=== PATIENT | male | born 1950 | race Caucasian/White ===

== ENCOUNTER 2020-10-15 18:25 | Emergency (ER) | payer OTHER ==
[~2020-10-15] VITALS: Ht 188 cm; Wt 147.4 kg
[~2020-10-15 18:25] MED LIST: HYDCHL25; OMEP20ER
[2020-10-15 19:08] LABS: BASOPHILS ABSOLUTE AUTO 0.04 K/mm3 (0.00-0.23); BASOPHILS PERCENT AUTO 0 % (0-2); EOSINOPHILS ABSOLUTE AUTO 0.15 K/mm3 (0.00-0.68); EOSINOPHILS PERCENT AUTO 1 % (0-6); Hematocrit 45.5 % (37.0-53.0); Hemoglobin 14.5 g/dL (13.5-17.5); IMMATURE GRAN ABSOLUTE AUTO 0.04 K/mm3 (0.00-0.10); IMMATURE GRAN PERCENT AUTO 0 % (0-1); LYMPHOCYTES ABSOLUTE AUTO 2.76 K/mm3 (0.84-5.20); LYMPHOCYTES PERCENT AUTO 24 % (21-46); MONOCYTES PERCENT AUTO 4 % (4-13); Mean Corpuscular HGB 27.3 pg (26.0-34.0); Mean Corpuscular HGB Conc 31.9 g/dL (31.5-36.5); Mean Corpuscular Volume 86 fL (80-100); Mean Platelet Volume 9.6 fL (9.1-12.4); NEUTROPHILS ABSOLUTE AUTO 7.91 K/mm3 (1.96-9.15); NEUTROPHILS PERCENT AUTO 69 % (41-73); Platelet Count 224 K/mm3 (150-400); RDW Coefficient Variation 14.6 % (11.7-14.2); RDW Standard Deviation 46.1 fL (35.1-46.3); Red Blood Cell Count 5.31 M/mm3 (4.30-5.90)
[2020-10-15] MEDS ORDERED: ALBU90OI INH (19:12)
[2020-10-15] MEDS ORDERED: FURO40 PO (19:13)
[2020-10-15] MEDS ORDERED: ATOR10 PO (19:13)
[2020-10-15] MEDS ORDERED: HYDHCL25 PO (19:14)
[2020-10-15] MEDS ORDERED: HYDCHL25 PO (19:14)
[2020-10-15] MEDS ORDERED: MELO7.5 PO (19:15)
[2020-10-15] MEDS ORDERED: OMEP20ER PO (19:15)
[2020-10-15] MEDS ORDERED: MELA3 PO (19:15)
[2020-10-15] MEDS ORDERED: LAMO100 PO (19:15)
[2020-10-15] MEDS ORDERED: LORA10ER PO (19:15)
[2020-10-15] MEDS ORDERED: POTA10T PO (19:16)
[2020-10-15] MEDS ORDERED: PRAZ2 PO (19:16)
[2020-10-15] MEDS ORDERED: TRAZ100 PO (19:17)
[2020-10-15] MEDS ORDERED: SERT100 PO (19:17)
[2020-10-15] MEDS ORDERED: Triamcinolone A15 G3 TOP (19:18)
[2020-10-15 19:33] LABS: Alanine Aminotransfer (ALT/SGP 36 U/L (12-78); Albumin, Blood 3.4 g/dL (3.4-5.0); Albumin/Globulin Ratio 0.9 (0.8-1.8); Alk Phos 107 U/L (50-136); Anion Gap 6 mmol/L (6-16); Aspartate Aminotrans (AST/SGOT 24 U/L (12-37); Bilirubin, Total 0.5 mg/dL (0.1-1.0); Blood Urea Nitrogen 21 mg/dL (8-24); Bun/Creatinine Ratio 16.3 (12.0-20.0); CO2, Blood 31 mmol/L (21-32); Chloride, Blood 105 mmol/L (98-108); Creatinine, Blood 1.29 mg/dL (0.60-1.20); Globulin, Blood 3.6 g/dL (2.2-4.0); Glomerular Filtration Rate 55 (60-); Glucose, Blood 145 mg/dL (70-99); Potassium, Blood 3.6 mmol/L (3.5-5.5); Sodium, Blood 142 mmol/L (136-145); Troponin I <0.015 ng/mL (0.000-0.040)
== END 2020-10-15 21:33 | disposition home or self-care (01) ==
LOC: ER 18:25
PROVIDERS: Emergency Medicine
DX: S82.61XA Displaced fracture of lateral malleolus of right fibula, initial encounter for closed fracture (principal); W18.39XA Other fall on same level, initial encounter; M54.9 Dorsalgia, unspecified; M47.814 Spondylosis without myelopathy or radiculopathy, thoracic region
CPT/HCPCS: 29515; 72040; 72070; 72100; 73590; 73630; 80053; 84484; 85025; 93005; 93010; 99284-25

== ENCOUNTER 2020-10-22 19:12 | Emergency (ER) | payer OTHER ==
[~2020-10-22] VITALS: Ht 188 cm; Wt 147.4 kg
[~2020-10-22 19:12] MED LIST changes: +ALBU90OI INH; +ATOR10 PO; +FURO40 PO; +HYDCHL25 PO; +HYDHCL25 PO; +LAMO100 PO; +LORA10ER PO; +MELA3 PO; +MELO7.5 PO; +OMEP20ER PO; +POTA10T PO; +PRAZ2 PO; +SERT100 PO; +TRAZ100 PO; +Triamcinolone A15 G3 TOP
== END 2020-10-22 20:24 | disposition home or self-care (01) ==
LOC: ER 19:12
DX: S82.831D Other fracture of upper and lower end of right fibula, subsequent encounter for closed fracture with routine healing (principal); J44.9 Chronic obstructive pulmonary disease, unspecified; E78.5 Hyperlipidemia, unspecified; I10 Essential (primary) hypertension; Z88.0 Allergy status to penicillin; Z88.8 Allergy status to other drugs, medicaments and biological substances; Z79.899 Other long term (current) drug therapy; X58.XXXD Exposure to other specified factors, subsequent encounter
CPT/HCPCS: 29515; 73590; 99283-25

== ENCOUNTER 2022-08-16 18:07 | Emergency (ER) | payer OTHER ==
[~2022-08-16] VITALS: Ht 188 cm; Wt 145.2 kg
[~2022-08-16 18:07] MED LIST changes: +LEVFLO500 PO; +Percocet 5-3251 EACH PO
[2022-08-16] MEDS ORDERED: ALLERCLEAR10 MG PO (20:25)
[2022-08-16] MEDS ORDERED: EPIPEN0.3 MG/0.3 IM (20:25)
[2022-08-16] MEDS ORDERED: Prednisone50 MG PO (20:25)
[2022-08-16 20:42] VITALS: BP 176/108
== END 2022-08-16 21:16 | disposition home or self-care (01) ==
LOC: ER 18:07
DX: L23.9 Allergic contact dermatitis, unspecified cause (principal); J44.9 Chronic obstructive pulmonary disease, unspecified; I10 Essential (primary) hypertension; E66.9 Obesity, unspecified; Z88.0 Allergy status to penicillin; Z88.8 Allergy status to other drugs, medicaments and biological substances; Z79.899 Other long term (current) drug therapy; Z87.891 Personal history of nicotine dependence
CPT/HCPCS: 96361; 96374; 96375; 99284-25; A9270; J2930; J7030

== ENCOUNTER 2022-08-27 13:09 | Emergency (ER) | payer OTHER ==
[~2022-08-27] VITALS: Ht 188 cm; Wt 154.2 kg
[~2022-08-27 13:09] MED LIST changes: +ALLERCLEAR10 MG PO; +EPIPEN0.3 MG/0.3 IM; +Prednisone50 MG PO
[2022-08-27 13:50] LABS: BASOPHILS ABSOLUTE AUTO 0.08 K/mm3 (0.00-0.23); BASOPHILS PERCENT AUTO 1 % (0-2); EOSINOPHILS PERCENT AUTO 4 % (0-6); Hematocrit 44.2 % (37.0-53.0); Hemoglobin 14.5 g/dL (13.5-17.5); IMMATURE GRAN ABSOLUTE AUTO 0.11 K/mm3 (0.00-0.10); IMMATURE GRAN PERCENT AUTO 1 % (0-1); LYMPHOCYTES ABSOLUTE AUTO 2.12 K/mm3 (0.84-5.20); LYMPHOCYTES PERCENT AUTO 18 % (21-46); MONOCYTES ABSOLUTE AUTO 0.82 K/mm3 (0.16-1.47); MONOCYTES PERCENT AUTO 7 % (4-13); Mean Corpuscular HGB 27.6 pg (26.0-34.0); Mean Corpuscular HGB Conc 32.8 g/dL (31.5-36.5); Mean Corpuscular Volume 84 fL (80-100); Mean Platelet Volume 8.9 fL (9.1-12.4); NEUTROPHILS ABSOLUTE AUTO 7.96 K/mm3 (1.96-9.15); NEUTROPHILS PERCENT AUTO 69 % (41-73); Platelet Count 218 K/mm3 (150-400); RDW Coefficient Variation 15.2 % (11.7-14.2); RDW Standard Deviation 46.4 fL (35.1-46.3); Red Blood Cell Count 5.26 M/mm3 (4.30-5.90); White Blood Cell Count 11.59 K/mm3 (4.00-11.30)
[2022-08-27] MEDS ORDERED: ACET500 PO (14:05)
[2022-08-27] MEDS ORDERED: DICLOFENAC SOD100 GM TOP (14:06)
[2022-08-27] MEDS ORDERED: B-121000 MC4 PO (14:06)
[2022-08-27] MEDS ORDERED: DOXE10 PO (14:07)
[2022-08-27] MEDS ORDERED: ERYT.5TO RIGHTEYE (14:08)
[2022-08-27] MEDS ORDERED: FLUTICASONE-SA1 EAC9 INH (14:08)
[2022-08-27 14:16] LABS: Albumin, Blood 3.1 g/dL (3.4-5.0); Albumin/Globulin Ratio 0.8 (0.8-1.8); Bilirubin, Total 0.5 mg/dL (0.1-1.0); Bun/Creatinine Ratio 12.7 (12.0-20.0); Calcium, Blood 8.5 mg/dL (8.5-10.1); Creatinine, Blood 1.26 mg/dL (0.60-1.20); Globulin, Blood 3.9 g/dL (2.2-4.0); Potassium, Blood 4.4 mmol/L (3.5-5.5)
[2022-08-27 16:13] LABS: Source, Urine Voided
[2022-08-27 16:32] LABS: Appearance, Urine Clear (Clear); Bilirubin, Urine Neg (Neg); Blood, Urine Neg (Neg); Color, Urine Yellow (P-Yellow); Glucose Qualitative, Urine Neg (Neg); Ketones, Urine Neg (Neg); Leukocyte Esterase, Urine Neg (Neg); Nitrite, Urine Neg (Neg); Protein, Urine Neg (Neg); Specific Gravity, Urine 1.015 (1.003-1.022); Urobilinogen, Urine NORM (Normal)
[2022-08-27 18:30] VITALS: BP 154/74
== END 2022-08-27 18:50 | disposition home or self-care (01) ==
LOC: ER 13:09
PROVIDERS: Emergency Medicine
DX: G45.9 Transient cerebral ischemic attack, unspecified (principal); J44.9 Chronic obstructive pulmonary disease, unspecified; E78.5 Hyperlipidemia, unspecified; I10 Essential (primary) hypertension; F41.9 Anxiety disorder, unspecified; F43.10 Post-traumatic stress disorder, unspecified; Z88.0 Allergy status to penicillin; Z88.8 Allergy status to other drugs, medicaments and biological substances; Z79.899 Other long term (current) drug therapy; Z87.891 Personal history of nicotine dependence; Z95.828 Presence of other vascular implants and grafts
CPT/HCPCS: 70450; 80053; 81003; 85025; 93005; 93010; 99285-25

== ENCOUNTER 2022-09-03 12:55 | Observation (INO) | payer OTHER ==
[~2022-09-03 12:55] MED LIST changes: +ACET500 PO; +B-121000 MC4 PO; +DICLOFENAC SOD100 GM TOP; +DOXE10 PO; +ERYT.5TO RIGHTEYE; +FLUTICASONE-SA1 EAC9 INH
[2022-09-03 14:12] LABS: Source, Urine Clean Catch
[2022-09-03 14:28] LABS: BASOPHILS ABSOLUTE AUTO 0.07 K/mm3 (0.00-0.23); BASOPHILS PERCENT AUTO 1 % (0-2); EOSINOPHILS ABSOLUTE AUTO 0.52 K/mm3 (0.00-0.68); EOSINOPHILS PERCENT AUTO 6 % (0-6); Hematocrit 45.8 % (37.0-53.0); Hemoglobin 14.7 g/dL (13.5-17.5); IMMATURE GRAN ABSOLUTE AUTO 0.03 K/mm3 (0.00-0.10); IMMATURE GRAN PERCENT AUTO 0 % (0-1); LYMPHOCYTES ABSOLUTE AUTO 2.29 K/mm3 (0.84-5.20); LYMPHOCYTES PERCENT AUTO 27 % (21-46); MONOCYTES ABSOLUTE AUTO 0.82 K/mm3 (0.16-1.47); MONOCYTES PERCENT AUTO 10 % (4-13); Mean Corpuscular HGB 27.6 pg (26.0-34.0); Mean Corpuscular HGB Conc 32.1 g/dL (31.5-36.5); Mean Corpuscular Volume 86 fL (80-100); NEUTROPHILS ABSOLUTE AUTO 4.78 K/mm3 (1.96-9.15); NEUTROPHILS PERCENT AUTO 56 % (41-73); Platelet Count 211 K/mm3 (150-400); RDW Coefficient Variation 15.2 % (11.7-14.2); RDW Standard Deviation 48.2 fL (35.1-46.3); Red Blood Cell Count 5.32 M/mm3 (4.30-5.90); White Blood Cell Count 8.51 K/mm3 (4.00-11.30)
[2022-09-03 14:40] LABS: Appearance, Urine Clear (Clear); Bilirubin, Urine Neg (Neg); Blood, Urine Neg (Neg); Color, Urine Yellow (P-Yellow); Glucose Qualitative, Urine Neg (Neg); Ketones, Urine Neg (Neg); Leukocyte Esterase, Urine Neg (Neg); Nitrite, Urine Neg (Neg); Protein, Urine Neg (Neg); Specific Gravity, Urine 1.015 (1.003-1.022); Urobilinogen, Urine NORM (Normal)
[2022-09-03 14:48] LABS: Magnesium, Blood 2.2 mg/dL (1.6-2.4)
[2022-09-03 14:58] LABS: Albumin, Blood 3.2 g/dL (3.4-5.0); Albumin/Globulin Ratio 0.8 (0.8-1.8); Bilirubin, Total 0.2 mg/dL (0.1-1.0); Bun/Creatinine Ratio 16.5 (12.0-20.0); Calcium, Blood 8.8 mg/dL (8.5-10.1); Creatinine, Blood 1.21 mg/dL (0.60-1.20); Potassium, Blood 3.3 mmol/L (3.5-5.5); Prolactin 8.3 ng/mL (2.5-17.4); Total Protein, Blood 7.2 g/dL (6.4-8.2)
[2022-09-03 15:19] LABS: Bicarbonate Venous 29.6 mmol/L (24.0-30.0); PCO2 Venous 58.6 mmHg (38-42); pH Blood Venous 7.36 (7.34-7.37)
--- NOTE | 2022-09-03 19:34 | NUR ---
PT CHART REVIEWED FOR ADMISSION
[2022-09-03 19:49] VITALS: BP 199/93
[2022-09-03 22:30] VITALS: BP 172/84
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
[2022-09-04 04:38] VITALS: BP 145/85
[2022-09-04 06:28] LABS: Bun/Creatinine Ratio 14.3 (12.0-20.0); Calcium, Blood 8.5 mg/dL (8.5-10.1); Creatinine, Blood 1.19 mg/dL (0.60-1.20); Potassium, Blood 3.5 mmol/L (3.5-5.5)
[2022-09-04 07:25] VITALS: BP 146/76
--- NOTE | 2022-09-04 07:49 | NUR ---
pt laying in bed on his side, a/ox4, pleasant and cooperative with care, follows commands well, reports pain to back and bottom because of the bed, had a rough night, lungs are clear, dim in bases, on r/a, denies cough, hrr, tele in place running sr per monitor, see strip, trace edema noted to b/l le, but could be body habitus, ppp+2, cap refill <3sec, vs stable, afebrile, iv site to lac infusing ns at 100mls/hr, site clear, btx4, abd large soft nontender, voids via urinal, skin c/w/d, maew, states he can't feel his feet due to nueropathy and is nonambulatory, but can get to a chair at baseline, barbara, call light in reach.
[2022-09-04] MEDS ORDERED: ASPI81CH PO (12:15)
[2022-09-04] MEDS ORDERED: LOSA25 PO (12:26)
--- NOTE | 2022-09-04 13:07 | NUR ---
Pt is being discharged to home, daughter will be home when he gets there, [facility] care worker, iv removed intact, went over instructions for him, he verbalized understanding, new medication was [facility] for enough to get through the weekend and also faxed to the [facility] to fill the remainder of the script. will leave via wheelhchair when transport arrives with all his belongings.
--- NOTE | 2022-09-04 13:44 | NUR ---
Pt left via wheelchair with all belongings with transport.
== END 2022-09-04 13:43 | disposition home or self-care (01) ==
LOC: ER 12:55 → MEDS 12:56
PROVIDERS: Student in an Organized Health Care Education/Training Program; ADMIT Nurse Practitioner Acute Care
DX: R41.82 Altered mental status, unspecified (principal); R09.02 Hypoxemia; G47.33 Obstructive sleep apnea (adult) (pediatric); E87.6 Hypokalemia; I16.0 Hypertensive urgency; I10 Essential (primary) hypertension; E78.5 Hyperlipidemia, unspecified; F43.10 Post-traumatic stress disorder, unspecified; F41.9 Anxiety disorder, unspecified; F31.9 Bipolar disorder, unspecified; E66.01 Morbid (severe) obesity due to excess calories; G62.9 Polyneuropathy, unspecified; Z88.0 Allergy status to penicillin; Z88.8 Allergy status to other drugs, medicaments and biological substances; Z87.891 Personal history of nicotine dependence; Z68.43 Body mass index [BMI] 50.0-59.9, adult; J44.9 Chronic obstructive pulmonary disease, unspecified
CPT/HCPCS: 36415; 71046; 80048; 80053; 80175; 81003; 82803; 83735; 83880; 84145; 84146; 84484; 85025; 93005; 93010; 93880; 94640; 94660; 94664; 94762; 96361; 96372; 96374; 96376; 99285-25; A9270; G0378; J0360; J1650; J7030

== ENCOUNTER 2024-04-18 21:45 | Emergency (ER) | payer OTHER ==
[~2024-04-18] VITALS: Ht 188 cm; Wt 158.8 kg
[~2024-04-18 21:45] MED LIST changes: +ASPI81CH PO; +LOSA25 PO
[2024-04-19 02:10] VITALS: BP 155/61
== END 2024-04-19 02:36 | disposition home or self-care (01) ==
LOC: ER 21:45
DX: M25.551 Pain in right hip (principal); W18.30XA Fall on same level, unspecified, initial encounter; I10 Essential (primary) hypertension; E78.5 Hyperlipidemia, unspecified; J44.9 Chronic obstructive pulmonary disease, unspecified; Z88.0 Allergy status to penicillin; Z88.9 Allergy status to unspecified drugs, medicaments and biological substances; Z88.8 Allergy status to other drugs, medicaments and biological substances; Z79.51 Long term (current) use of inhaled steroids; Z79.899 Other long term (current) drug therapy; Z79.64 Long term (current) use of myelosuppressive agent
CPT/HCPCS: 73502; 99283-25

== ENCOUNTER 2024-05-04 11:53 | Emergency (ER) | payer OTHER ==
[~2024-05-04] VITALS: Ht 188 cm; Wt 158.8 kg
[2024-05-04] MEDS ORDERED: Morphine Sulfate 4 MG/1 ML Injection IV ONE (12:20)
[2024-05-04] MEDS ORDERED: Methocarbamol 500 MG Tab PO ONE ×2 (12:20→19:40)
[2024-05-04] MEDS ORDERED: Ketorolac Tromethamine 30mg Vial IV ONE ×2 (12:20→19:40)
[2024-05-04 14:00] VITALS: BP 116/105
[2024-05-04] MEDS ORDERED: Robaxin750 MG PO (14:27)
[2024-05-04] MEDS ORDERED: Morphine Sulfat15 MG PO (14:27)
[2024-05-04] MEDS ORDERED: IBUP600 PO (14:27)
== END 2024-05-04 20:27 | disposition home or self-care (01) ==
LOC: ER 11:53
DX: M25.551 Pain in right hip (principal); J44.9 Chronic obstructive pulmonary disease, unspecified; E78.5 Hyperlipidemia, unspecified; I10 Essential (primary) hypertension; F43.10 Post-traumatic stress disorder, unspecified; K21.9 Gastro-esophageal reflux disease without esophagitis; G47.33 Obstructive sleep apnea (adult) (pediatric); Z96.641 Presence of right artificial hip joint; Z87.891 Personal history of nicotine dependence; Z79.51 Long term (current) use of inhaled steroids; Z79.82 Long term (current) use of aspirin; Z79.899 Other long term (current) drug therapy; Z88.1 Allergy status to other antibiotic agents; Z88.0 Allergy status to penicillin; Z88.8 Allergy status to other drugs, medicaments and biological substances
CPT/HCPCS: 72192; 96374; 96375; 96376; 99284-25; A9270; J1885; J2270

== ENCOUNTER 2024-05-16 13:38 | Inpatient (IN) | payer OTHER ==
[~2024-05-16] VITALS: Ht 188 cm; Wt 181.2 kg
[~2024-05-16 13:38] MED LIST changes: +IBUP600 PO; +Morphine Sulfat15 MG PO; +Robaxin750 MG PO
[2024-05-16 14:50] LABS: BASOPHILS ABSOLUTE AUTO 0.06 K/mm3 (0.00-0.23); BASOPHILS PERCENT AUTO 1 % (0-2); EOSINOPHILS ABSOLUTE AUTO 0.49 K/mm3 (0.00-0.68); EOSINOPHILS PERCENT AUTO 5 % (0-6); Hematocrit 41.3 % (37.0-53.0); IMMATURE GRAN ABSOLUTE AUTO 0.04 K/mm3 (0.00-0.10); IMMATURE GRAN PERCENT AUTO 0 % (0-1); LYMPHOCYTES ABSOLUTE AUTO 2.51 K/mm3 (0.84-5.20); LYMPHOCYTES PERCENT AUTO 26 % (21-46); MONOCYTES ABSOLUTE AUTO 0.86 K/mm3 (0.16-1.47); MONOCYTES PERCENT AUTO 9 % (4-13); Mean Corpuscular HGB 27.5 pg (26.0-34.0); Mean Corpuscular HGB Conc 31.5 g/dL (31.5-36.5); Mean Corpuscular Volume 87 fL (80-100); Mean Platelet Volume 9.8 fL (9.1-12.4); NEUTROPHILS ABSOLUTE AUTO 5.87 K/mm3 (1.96-9.15); NEUTROPHILS PERCENT AUTO 60 % (41-73); Platelet Count 256 K/mm3 (150-400); RDW Coefficient Variation 15.5 % (11.7-14.2); RDW Standard Deviation 49.6 fL (35.1-46.3); Red Blood Cell Count 4.73 M/mm3 (4.30-5.90); White Blood Cell Count 9.83 K/mm3 (4.00-11.30)
[2024-05-16 15:08] LABS: Albumin, Blood 3.1 g/dL (3.4-5.0); Albumin/Globulin Ratio 0.8 (0.8-1.8); Bilirubin, Total 0.6 mg/dL (0.1-1.0); Bun/Creatinine Ratio 17.9 (12.0-20.0); Calcium, Blood 8.8 mg/dL (8.5-10.1); Creatinine, Blood 1.23 mg/dL (0.60-1.20); Potassium, Blood 4.2 mmol/L (3.5-5.5); Total Protein, Blood 7.1 g/dL (6.4-8.2)
[2024-05-16] MEDS ORDERED: Albuterol 2.5 MG/3 ML VIAL INH SCH (15:55)
[2024-05-16] MEDS ORDERED: MethylPREDNISolone Sod Succ 125 MG Vial IV ONE (15:55)
[2024-05-16] MEDS ORDERED: Clindamycin 600mg in D5W 50 ML IV ONE (15:55)
[2024-05-16] MEDS ORDERED: Furosemide 10 MG/ML 4ML Vial IV ONE (16:00)
[2024-05-16] MEDS ORDERED: Acetaminophen 325 MG TABLET PO PRN (16:55)
[2024-05-16] MEDS ORDERED: Naloxone HCl 0.4MG / ML 1ML Vial IV PRN (16:55)
[2024-05-16] MEDS ORDERED: Morphine Sulfate IR 15 MG Tab PO PRN (16:55)
[2024-05-16] MEDS ORDERED: Ipratropium/Albuterol SulF 2.5-0.5MG/3 ML Amp INH SCH (17:00)
[2024-05-16] MEDS ORDERED: FLU VACC TS2024-25(6MOS UP)/PF 45 MCG/0.5 ML SYRINGE IM SCH (17:00)
[2024-05-16 17:04] LABS: Influenza A, PCR NEGATIVE (NEGATIVE); Influenza B, PCR NEGATIVE (NEGATIVE); Resp Syncytial Virus, PCR NEGATIVE (NEGATIVE); SARS-Cov-2 (COVID-19) PCR, MMC NEGATIVE (NEGATIVE)
[2024-05-16 17:54] LABS: Base Excess Venous 2.9 mmol/L; Bicarbonate Venous 27.2 mmol/L (24.0-30.0); PCO2 Venous 34.2 mmHg (38-42); pH Blood Venous 7.49 (7.34-7.37)
[2024-05-16] MEDS ORDERED: CeFAZolin Sodium 1,000 MG in NS 50 ML IV SCH (18:00)
[2024-05-16] MEDS ORDERED: Furosemide 10 MG/ML 4ML Vial IV SCH (18:00)
[2024-05-16 20:28] VITALS: BP 173/83
[2024-05-16] MEDS ORDERED: Lactobacil 2-S.Thermo-Bifido 1 1 Cap PO SCH (21:00)
[2024-05-16] MEDS ORDERED: Docusate Sodium 100 MG Cap PO SCH (21:00)
[2024-05-16] MEDS ORDERED: GuaiFENesin 600 MG TabCR PO SCH (21:00)
[2024-05-17] MEDS ORDERED: ATOR40TA PO (01:28)
[2024-05-17] MEDS ORDERED: Vitamin D1000 UNI1 PO (01:30)
[2024-05-17] MEDS ORDERED: EZET10 PO (01:42)
[2024-05-17] MEDS ORDERED: Flonase 0.05% N16 GM (01:43)
[2024-05-17] MEDS ORDERED: FOLI1 PO (01:44)
[2024-05-17] MEDS ORDERED: LORA10ER PO (01:48)
[2024-05-17] MEDS ORDERED: Robaxin750 MG PO (01:50)
[2024-05-17] MEDS ORDERED: MORP15ER PO (01:51)
[2024-05-17] MEDS ORDERED: MORP30 PO (01:53)
[2024-05-17] MEDS ORDERED: NS 1,000 ML BAG IR SCH (02:35)
[2024-05-17] MEDS ORDERED: NS 250 ML IV PRN (02:50)
[2024-05-17 02:57] VITALS: BP 175/75
--- NOTE | 2024-05-17 04:42 | NUR ---
2015: REC'D PT FROM ER, ORIENTED TO ROOM AND CALL LIGHT SYSTEM. [facility] D/T HEARING A POOPING SOUND WHILE ROLLING OVER IN BED. HX: R HIP REPLACEMENT X2. PCP ADVISED TO GO TO ER FOR BLE REDNESS AND EDEMA. AAOX4. BEDREST IS BASELINE, USES AN ELECTRIC WC FOR APPTS. HE DOES HAVE HOME HEALTH FOR 3 HRS DAILY. 2L O2 VIA NC WHICH IS HIS BASELINE. HOME CPAP IN ROOM HOWEVER PT C/O "TOO MUCH AIR GOING THROUGH CPAP," KEEP NC ON. INCT. OF URINE AND BM. X2BM IN ER. MALE PERWICK IN PLACE FOR POLYURIA. NO ACUTE NEEDS OVERNIGHT.
[2024-05-17 05:20] LABS: BASOPHILS ABSOLUTE AUTO 0.03 K/mm3 (0.00-0.23); BASOPHILS PERCENT AUTO 0 % (0-2); EOSINOPHILS PERCENT AUTO 0 % (0-6); Hematocrit 38.4 % (37.0-53.0); Hemoglobin 12.1 g/dL (13.5-17.5); IMMATURE GRAN ABSOLUTE AUTO 0.07 K/mm3 (0.00-0.10); IMMATURE GRAN PERCENT AUTO 1 % (0-1); LYMPHOCYTES ABSOLUTE AUTO 1.74 K/mm3 (0.84-5.20); LYMPHOCYTES PERCENT AUTO 16 % (21-46); MONOCYTES ABSOLUTE AUTO 0.64 K/mm3 (0.16-1.47); MONOCYTES PERCENT AUTO 6 % (4-13); Mean Corpuscular HGB 27.2 pg (26.0-34.0); Mean Corpuscular HGB Conc 31.5 g/dL (31.5-36.5); Mean Corpuscular Volume 86 fL (80-100); Mean Platelet Volume 10.1 fL (9.1-12.4); NEUTROPHILS ABSOLUTE AUTO 8.62 K/mm3 (1.96-9.15); NEUTROPHILS PERCENT AUTO 78 % (41-73); Platelet Count 253 K/mm3 (150-400); RDW Coefficient Variation 15.4 % (11.7-14.2); RDW Standard Deviation 48.3 fL (35.1-46.3); Red Blood Cell Count 4.45 M/mm3 (4.30-5.90)
[2024-05-17 05:49] LABS: Albumin, Blood 2.9 g/dL (3.4-5.0); Albumin/Globulin Ratio 0.7 (0.8-1.8); Bilirubin, Total 0.3 mg/dL (0.1-1.0); Bun/Creatinine Ratio 17.4 (12.0-20.0); Calcium, Blood 8.8 mg/dL (8.5-10.1); Creatinine, Blood 1.32 mg/dL (0.60-1.20); Globulin, Blood 3.9 g/dL (2.2-4.0); Magnesium, Blood 2.2 mg/dL (1.6-2.4); Potassium, Blood 4.3 mmol/L (3.5-5.5); Total Protein, Blood 6.8 g/dL (6.4-8.2)
[2024-05-17 07:35] VITALS: BP 206/96
[2024-05-17] MEDS ORDERED: Enoxaparin 40 MG/0.4 ML SYR SC SCH ×2 (09:00)
[2024-05-17] MEDS ORDERED: PredniSONE 20 MG Tab PO SCH (09:00)
[2024-05-17] MEDS ORDERED: NS 1,000 ML IV SCH (09:40)
[2024-05-17] MEDS ORDERED: N-Acetylcysteine 600 MG CAP PO SCH (10:00)
--- NOTE | 2024-05-17 12:00 | NUR ---
pt laying in bed awake, a/ox4, pleasant and cooperative with care, follows commands well, reports pain, medicated per mar, states he can't stand to transfer to chair at this point, lungs have wheeze, crackles, on 2 liters 02 via n/c, which is baseline, no cough noted, hrr, 4+ edema noted to b/l le, cap refill < 3 sec, vs stable, afebrile, piv to rfa site is clear and patent, btx4, abd flat soft nontender, voids without diff, skin c/w/d, maew, barbara, call light in reach.
[2024-05-17] MEDS ORDERED: Loratadine 10 MG Tab PO PRN (15:50)
[2024-05-17] MEDS ORDERED: HyDROXyzine HCl 25 MG Tab PO PRN (15:55)
[2024-05-17] MEDS ORDERED: Methocarbamol 500 MG Tab PO PRN (15:55)
[2024-05-17 16:00] VITALS: BP 175/131
[2024-05-17] MEDS ORDERED: Azithromycin 250 MG Tab PO SCH (16:00)
[2024-05-17] MEDS ORDERED: Furosemide 10 MG/ML 4ML Vial IV SCH (16:00)
--- NOTE | 2024-05-17 18:35 | NUR ---
pt had a ct, and u/s to rle, otherwise uneventful day, no complaints or acute changes, call light in reach.
[2024-05-17 19:40] VITALS: BP 150/63
[2024-05-17] MEDS ORDERED: Melatonin 3 MG Tab PO SCH (21:00)
[2024-05-17] MEDS ORDERED: LamoTRIgine 100 MG Tab PO SCH (21:00)
[2024-05-17] MEDS ORDERED: Doxepin HCL 10 MG CAP PO SCH (21:00)
[2024-05-17] MEDS ORDERED: GuaiFENesin 600 MG TabCR PO SCH (21:00)
[2024-05-17] MEDS ORDERED: Prazosin HCl 1 MG Cap PO SCH (21:00)
[2024-05-18 05:03] VITALS: BP 136/72
[2024-05-18 05:03] LABS: Hematocrit 38.4 % (37.0-53.0); Hemoglobin 12.3 g/dL (13.5-17.5); Mean Corpuscular Volume 87 fL (80-100); Mean Platelet Volume 9.4 fL (9.1-12.4); Platelet Count 239 K/mm3 (150-400); RDW Coefficient Variation 15.8 % (11.7-14.2); RDW Standard Deviation 50.4 fL (35.1-46.3); White Blood Cell Count 10.17 K/mm3 (4.00-11.30)
[2024-05-18 05:31] LABS: Bun/Creatinine Ratio 19.6 (12.0-20.0); Calcium, Blood 8.6 mg/dL (8.5-10.1); Creatinine, Blood 1.43 mg/dL (0.60-1.20); Potassium, Blood 3.8 mmol/L (3.5-5.5)
--- NOTE | 2024-05-18 05:34 | NUR ---
Shift Summary Pt placed on home CPAP last night and he had many desaturation events with the O2 monitor alarming, SPO2 in the low 80s. RT assessed pt and changed his small mask from home for a larger mask, increased CPAP pressure and turned O2 up to 6L. With these interventions pt still would desat down to mid 80s but not as frequently as before. Pt is on purewick. He did c/o R hip pain, medicated x1 per emar. Pt slept t/o most of the night. He is AOx4, pleasant and cooperative with care.
[2024-05-18 07:13] VITALS: BP 169/87
[2024-05-18] MEDS ORDERED: Omeprazole 20 MG CapCR PO SCH (09:00)
[2024-05-18] MEDS ORDERED: Folic Acid 1 MG TAB PO SCH (09:00)
[2024-05-18] MEDS ORDERED: Cholecalciferol 1000 Unit Tablet (=25MCG) PO SCH (09:00)
[2024-05-18] MEDS ORDERED: Ezetimibe 10 MG Tab PO SCH (09:00)
[2024-05-18] MEDS ORDERED: Cyanocobalamin 500 MCG Tab PO SCH (09:00)
[2024-05-18] MEDS ORDERED: Atorvastatin 40 MG Tab PO SCH (09:00)
[2024-05-18] MEDS ORDERED: Losartan Potassium 25 MG Tab PO SCH (09:00)
[2024-05-18] MEDS ORDERED: Sertraline HCl 100 MG Tab PO SCH (09:00)
[2024-05-18] MEDS ORDERED: GuaiFENesin 600 MG TabCR PO SCH (09:00)
[2024-05-18] MEDS ORDERED: Fluticasone 0.05% Nasal Spray SCH (09:00)
[2024-05-18 15:24] VITALS: BP 153/88
--- NOTE | 2024-05-18 17:13 | NUR ---
PT PLEASANT TODAY. NO BM YET FOR 2 DAYS. LUNGS DIM THROUGH/OUT AND FINE CRACKLES IN BASES.CONTINUES ON 4L O2. SON IN TO VISIT TODAY. NO FURTHER CONCERNS NOTED. BED IN LOW POSITION, CALL LITE IN REACH, CALLS APPROP.
--- NOTE | 2024-05-18 18:16 | NUR ---
TURNED O2 DOWN TO 3L O2. HOLDING 92%.
[2024-05-18 19:12] VITALS: BP 151/71
[2024-05-19 05:17] LABS: Albumin, Blood 3.1 g/dL (3.4-5.0); Anion Gap 5 mmol/L (3-11); Blood Urea Nitrogen 32 mg/dL (8-24); Bun/Creatinine Ratio 23.2 (12.0-20.0); CO2, Blood 31 mmol/L (21-32); Calcium, Blood 8.2 mg/dL (8.5-10.1); Chloride, Blood 101 mmol/L (98-108); Creatinine, Blood 1.38 mg/dL (0.60-1.20); Glomerular Filtration Rate 53 (60-); Glucose, Blood 114 mg/dL (70-99); Phosphorus, Blood 4.1 mg/dL (2.5-4.9); Potassium, Blood 3.4 mmol/L (3.5-5.5); Sodium, Blood 134 mmol/L (136-145)
[2024-05-19 05:21] VITALS: BP 151/72
--- NOTE | 2024-05-19 05:46 | NUR ---
Shift Summary Tonight his CPAP mask was adjusted to be much tighter, he had fewer desaturation events than last night. Medicated x1 for chronic R hip pain. Purewick in place draining voids. Pt on bedrest d.t R hip pain, weakness and obeisity. No BM for 3 days. Pt is AOx4, slept t/o most of the night.
[2024-05-19 08:05] VITALS: BP 143/78
[2024-05-19] MEDS ORDERED: Potassium Chloride 20 MEQ/15 ML UDC PO SCH (10:00)
[2024-05-19 11:32] VITALS: BP 134/74
[2024-05-19 15:32] VITALS: BP 143/69
--- NOTE | 2024-05-19 16:02 | NUR ---
SHIFT SUMMARY PATIENT IN BED THIS SHIFT. REDNESS TO BILAT LEGS RECEEDING INSIDE DEMARKED AREAS, BILAT LEGS ELEVATED MAJORITY OF SHIFT. OXYGEN TITRATED TO 3LITERS NC DURING DAYSHIFT. POTASSIUM REPLACEMENT ADMIN PER APR. NO C/O PAIN. A/O X4. ABLE TO MAKE NEEDS KNOWN. CALL LIGHT IN REACH.
[2024-05-19 20:14] VITALS: BP 136/78
--- NOTE | 2024-05-19 21:54 | NUR ---
ADMIT NOTE 62 YR OLD MALE ADMITTED TO FLOOR FROM THE ED WITH DX OF TRANSIENT AMNESIA. REPORTED INCREASED CONFUSION. BP ELEVATED. ALERT TO QUESTIONS ASKED, ATTENDED BY . ORIENTED TO USE OF CALL LIGHT. BED ALARM ON. CALL LIGHT IN REACH
[2024-05-20 02:20] VITALS: BP 141/78
--- NOTE | 2024-05-20 03:09 | NUR ---
SHIFT SUMM: PT IS A 74 YO FULL CODE WHO WAS ADMITTED FOR ARF. PT HAS CELLULITIS TO THE TOPS OF BOTH BILATERAL SHINS. PT HAS BEEN ENCORAGED TO ELEVATE LEGS UNDER PILLOWS BUT HE SAID ITS TO PAINFUL. PT HAS NOT HAD A BM SINCE 05/16/24 AND BOWEL CARE MEDS HAVE BEEN GIVEN. PT HAS BEEN RELAXING MOST OF THE EVENING IN BED AND ON 4L OF NC WHEN AWAKE AND CPAP AT NIGHT WHILE ASLEEP. PT'S SON VISITED AND WAS AT BEDSIDE AT BEGINNING OF SHIFT. PT ID A DAILY WT AND STRICT I&O'S.PT IS USING A PURE WICK AND IS VERY UNSTEADY AND WEAK WHEN AMBULATING PER SON. PT IS ON CONT PULSE OX AND CALLS TO MAKE NEEDS KNOWN. PT HAD SOME PAIN AND WAS MEDICATED PER EMAR. CALL LIGHT IN REACH
[2024-05-20 07:50] VITALS: BP 125/106
[2024-05-20 09:52] LABS: Calcium, Blood 8.4 mg/dL (8.5-10.1); Creatinine, Blood 1.26 mg/dL (0.60-1.20); Potassium, Blood 3.7 mmol/L (3.5-5.5)
[2024-05-20] MEDS ORDERED: Polyethylene Glycol 3350 17 gm PO SCH (10:00)
[2024-05-20 10:51] VITALS: BP 139/75
[2024-05-20 16:15] VITALS: BP 144/68
--- NOTE | 2024-05-20 18:34 | NUR ---
SHIFT SUMMARY PATIENT ABLE TO GET INTO POWERCHAIR FOR A FEW HOURS THIS SHIFT, ABLE TO SBA SP TRANSFER. TITRATING OXYGEN TO 2 LITERS NC SATING 93%. A/OX4. USING MALE PURWICK FOR STRICT I&O. BILAT REDNESS TO SHINS, RECEEDING WITHIN DEMARKED BORDERS. EATING AND DRINKINING WELL, PILLS WHOLE WITH WATER. HAD BM THIS SHIFT, INCONTINENT. ABLE TO MAKE NEEDS KNOWN. CALL LIGHT IN REACH.
[2024-05-20 20:08] VITALS: BP 143/72
[2024-05-21 03:19] VITALS: BP 145/79
--- NOTE | 2024-05-21 05:02 | NUR ---
SHIFT SUMMARY: PT AOX4 POWERCHAIR AT BASELINE. STAYED IN BED ALL SHIFT. TOLERATING MEDICATIONS WELL. COMPLAINED OF SOME HIP PAIN, MEDICATED PER EMR. PUT ON CPAP TO SLEEP WITH 5L BLEED IN. WHILE THIS RN WAS AT BREAK, BREAK NURSE REPORTED PT WAS DESATTING AND COMING BACK UP REGULARLY, INSTRUCTED TO PLACE PT ON 7L BLEED IN AND PT MAINTAINTED SATS. MASK READJUSTED AND PT WEANED BACK TO 5L WITH NO DESATS THE REST OF THE NIGHT. PT TOLERATED WELL AND IS IN BED SLEEPING, BED IN LOWEST POSITION, CALL LIGHT IN REACH. CONTINUING CARE.
[2024-05-21 06:13] LABS: Anion Gap 7 mmol/L (3-11); Blood Urea Nitrogen 27 mg/dL (8-24); Bun/Creatinine Ratio 21.6 (12.0-20.0); CO2, Blood 31 mmol/L (21-32); Calcium, Blood 8.3 mg/dL (8.5-10.1); Chloride, Blood 101 mmol/L (98-108); Creatinine, Blood 1.25 mg/dL (0.60-1.20); Glomerular Filtration Rate 60 (60-); Glucose, Blood 101 mg/dL (70-99); Magnesium, Blood 2.2 mg/dL (1.6-2.4); Phosphorus, Blood 3.5 mg/dL (2.5-4.9); Potassium, Blood 3.5 mmol/L (3.5-5.5); Sodium, Blood 135 mmol/L (136-145)
[2024-05-21 07:37] VITALS: BP 144/83
[2024-05-21] MEDS ORDERED: GUAI600T33 PO (17:00)
[2024-05-21] MEDS ORDERED: MIRALAX17 GM PO (17:00)
[2024-05-21] MEDS ORDERED: DOCU100 PO (17:00)
[2024-05-21] MEDS ORDERED: CEPH500 PO (17:01)
[2024-05-21] MEDS ORDERED: VISBIOME 112.51 EACH PO (17:01)
--- NOTE | 2024-05-21 17:17 | NUR ---
DISCHARGE MEDICATIONS THIS RN CALLED TO DR. DURAN FOR MEDICATIONS THAT WERE NOT ORDERED AND WERE ON THE PT'S HOME LIST MEDICATIONS. DR. DURAN ORDERED TO CONTINUE PT'S HOME MEDICATIONS/DOSES. MEDICATIONS THAT WERE ORDERED TO CONTINUE ARE: ASA 81 CHEWABLE TABLET, DICLOFENAC SODIUM 3 % GEL, TRAZADONE 100 MG. PT TO CONTINUE HOME DIRECTIONS PER DR. DURAN. THESE MEDICATIONS ARE FOR DISCHARGE WITH THE REST OF DISCHARGE MEDICATIONS.
--- NOTE | 2024-05-21 18:33 | NUR ---
DISCHARGE REVIEWED WITH PT. IV PULLED BY ROGERIO. PT VERBALIZED UNDERSTANDING MEDS AND INST. WHEELED TO DOOR BY TRANSPORT AT 1823
== END 2024-05-21 18:31 | disposition home or self-care (01) | DRG 291 ==
LOC: ER 13:38 → MEDS 16:52 → ERHOLD 16:52 → MEDS 20:05
PROVIDERS: Emergency Medicine; Internal Medicine; Student in an Organized Health Care Education/Training Program; ADMIT Student in an Organized Health Care Education/Training Program
PROC: 5A09357 Assistance with Respiratory Ventilation, Less than 24 Consecutive Hours, Continuous Positive Airway Pressure (ICD-10-PCS; principal; 2024-05-16)
DX: I11.0 Hypertensive heart disease with heart failure (principal); I50.31 Acute diastolic (congestive) heart failure; J96.01 Acute respiratory failure with hypoxia; J44.0 Chronic obstructive pulmonary disease with (acute) lower respiratory infection; L03.115 Cellulitis of right lower limb; L03.116 Cellulitis of left lower limb; E87.1 Hypo-osmolality and hyponatremia; Z68.41 Body mass index [BMI] 40.0-44.9, adult; J40 Bronchitis, not specified as acute or chronic; E66.01 Morbid (severe) obesity due to excess calories; G47.33 Obstructive sleep apnea (adult) (pediatric); E78.5 Hyperlipidemia, unspecified; F41.9 Anxiety disorder, unspecified; F43.10 Post-traumatic stress disorder, unspecified; K21.9 Gastro-esophageal reflux disease without esophagitis; G89.4 Chronic pain syndrome; E88.09 Other disorders of plasma-protein metabolism, not elsewhere classified; R79.1 Abnormal coagulation profile; I42.1 Obstructive hypertrophic cardiomyopathy; E87.6 Hypokalemia; Z96.641 Presence of right artificial hip joint; Z88.0 Allergy status to penicillin; Z88.8 Allergy status to other drugs, medicaments and biological substances; Z79.82 Long term (current) use of aspirin; Z79.51 Long term (current) use of inhaled steroids; Z95.828 Presence of other vascular implants and grafts; Z98.1 Arthrodesis status; Z87.891 Personal history of nicotine dependence
CPT/HCPCS: 0241U; 36415; 71046; 71260; 80048; 80053; 80069; 82803; 83735; 83880; 84145; 84484; 85025; 85027; 85379; 93005; 93010; 93306; 93971; 94640; 94644; 94664; 94761; 94762; 96365; 96366; 96372; 96375; 96376; 99285-25; A9270; G0378; J0690; J1650; J1940; J2919; J7050; J7512; Q9967

== ENCOUNTER 2024-06-11 11:42 | Emergency (ER) | payer OTHER ==
[~2024-06-11] VITALS: Ht 190.5 cm; Wt 167.8 kg
[~2024-06-11 11:42] MED LIST changes: +ATOR40TA PO; +CEPH500 PO; +DOCU100 PO; +EZET10 PO; +FOLI1 PO; +Flonase 0.05% N16 GM; +GUAI600T33 PO; +MIRALAX17 GM PO; +MORP15ER PO; +MORP30 PO; +VISBIOME 112.51 EACH PO; +Vitamin D1000 UNI1 PO
[2024-06-11 12:50] LABS: BASOPHILS ABSOLUTE AUTO 0.06 K/mm3 (0.00-0.23); BASOPHILS PERCENT AUTO 1 % (0-2); EOSINOPHILS ABSOLUTE AUTO 0.56 K/mm3 (0.00-0.68); EOSINOPHILS PERCENT AUTO 5 % (0-6); Hemoglobin 13.1 g/dL (13.5-17.5); IMMATURE GRAN ABSOLUTE AUTO 0.07 K/mm3 (0.00-0.10); IMMATURE GRAN PERCENT AUTO 1 % (0-1); LYMPHOCYTES ABSOLUTE AUTO 3.06 K/mm3 (0.84-5.20); LYMPHOCYTES PERCENT AUTO 28 % (21-46); MONOCYTES ABSOLUTE AUTO 0.93 K/mm3 (0.16-1.47); MONOCYTES PERCENT AUTO 9 % (4-13); Mean Corpuscular HGB 27.2 pg (26.0-34.0); Mean Corpuscular HGB Conc 31.2 g/dL (31.5-36.5); Mean Corpuscular Volume 87 fL (80-100); Mean Platelet Volume 9.7 fL (9.1-12.4); NEUTROPHILS PERCENT AUTO 57 % (41-73); Platelet Count 281 K/mm3 (150-400); RDW Coefficient Variation 15.1 % (11.7-14.2); RDW Standard Deviation 48.1 fL (35.1-46.3); Red Blood Cell Count 4.81 M/mm3 (4.30-5.90); White Blood Cell Count 10.78 K/mm3 (4.00-11.30)
[2024-06-11 13:16] LABS: Albumin, Blood 3.2 g/dL (3.4-5.0); Albumin/Globulin Ratio 0.8 (0.8-1.8); Bilirubin, Total 0.4 mg/dL (0.1-1.0); Bun/Creatinine Ratio 18.9 (12.0-20.0); Creatinine, Blood 1.11 mg/dL (0.60-1.20); Potassium, Blood 4.1 mmol/L (3.5-5.5); Total Protein, Blood 7.2 g/dL (6.4-8.2)
[2024-06-11] MEDS ORDERED: Clindamycin 900mg in D5W 50ML 50 ML IV ONE (14:05)
[2024-06-11] MEDS ORDERED: Furosemide 10 MG / ML 2ML Vial IV ONE (14:15)
[2024-06-11] MEDS ORDERED: Lasix20 MG PO (16:27)
[2024-06-11] MEDS ORDERED: CLIN150 PO (16:27)
[2024-06-11 16:54] VITALS: BP 131/95
[2024-07-04] MEDS ORDERED: BUME1 PO (12:05)
== END 2024-06-11 18:01 | disposition home or self-care (01) ==
LOC: ER 11:42
PROVIDERS: Physician Assistant
DX: L03.116 Cellulitis of left lower limb (principal); L03.115 Cellulitis of right lower limb; J44.9 Chronic obstructive pulmonary disease, unspecified; I10 Essential (primary) hypertension; Z88.0 Allergy status to penicillin; Z88.8 Allergy status to other drugs, medicaments and biological substances; Z79.899 Other long term (current) drug therapy; Z79.82 Long term (current) use of aspirin; Z96.641 Presence of right artificial hip joint; Z87.891 Personal history of nicotine dependence
CPT/HCPCS: 80053; 85025; 96365; 96375; 99283-25; J1938; J1940

== ENCOUNTER 2024-07-03 05:08 | Emergency (ER) | payer OTHER ==
[~2024-07-03] VITALS: Ht 188 cm; Wt 181.4 kg
[2024-07-04 15:00] VITALS: BP 158/62
== END 2024-07-04 15:46 | disposition home or self-care (01) ==
LOC: ER 05:08
DX: S52.502A Unspecified fracture of the lower end of left radius, initial encounter for closed fracture (principal); M54.2 Cervicalgia; M54.50 Low back pain, unspecified; T68.XXXA Hypothermia, initial encounter; J44.9 Chronic obstructive pulmonary disease, unspecified; I11.0 Hypertensive heart disease with heart failure; I50.20 Unspecified systolic (congestive) heart failure; K21.9 Gastro-esophageal reflux disease without esophagitis; G47.33 Obstructive sleep apnea (adult) (pediatric); V28.49XA Other motorcycle driver injured in noncollision transport accident in traffic accident, initial encounter; Z88.0 Allergy status to penicillin; Z88.8 Allergy status to other drugs, medicaments and biological substances; Z79.899 Other long term (current) drug therapy; Z79.82 Long term (current) use of aspirin; Z96.641 Presence of right artificial hip joint; Z87.891 Personal history of nicotine dependence

== ENCOUNTER 2024-07-08 19:54 | Emergency (ER) | payer OTHER ==
[~2024-07-08] VITALS: Ht 188 cm; Wt 213.2 kg
[2024-07-09 00:15] VITALS: BP 125/61
== END 2024-07-09 00:15 | disposition home or self-care (01) ==
LOC: ER 19:54
DX: J02.0 Streptococcal pharyngitis (principal); K14.0 Glossitis; J44.9 Chronic obstructive pulmonary disease, unspecified; G47.33 Obstructive sleep apnea (adult) (pediatric); I10 Essential (primary) hypertension; E78.5 Hyperlipidemia, unspecified; K21.9 Gastro-esophageal reflux disease without esophagitis; G62.9 Polyneuropathy, unspecified; Z87.891 Personal history of nicotine dependence; Z88.0 Allergy status to penicillin; Z88.8 Allergy status to other drugs, medicaments and biological substances; Z79.82 Long term (current) use of aspirin; Z79.899 Other long term (current) drug therapy

== ENCOUNTER 2024-08-21 09:44 | Emergency (ER) | payer OTHER ==
[~2024-08-21] VITALS: Ht 182.9 cm; Wt 172.4 kg
[~2024-08-21 09:44] MED LIST changes: +BUME1 PO; +CEFU250T47 PO; +CLIN150 PO; +Lasix20 MG PO; +NYAMYC15 G1 TOP; +NYST237S MT
[2024-08-21 11:07] LABS: BASOPHILS ABSOLUTE AUTO 0.05 K/mm3 (0.00-0.23); BASOPHILS PERCENT AUTO 0 % (0-2); EOSINOPHILS ABSOLUTE AUTO 0.43 K/mm3 (0.00-0.68); EOSINOPHILS PERCENT AUTO 4 % (0-6); Hematocrit 38.5 % (37.0-53.0); Hemoglobin 12.1 g/dL (13.5-17.5); IMMATURE GRAN ABSOLUTE AUTO 0.07 K/mm3 (0.00-0.10); IMMATURE GRAN PERCENT AUTO 1 % (0-1); LYMPHOCYTES ABSOLUTE AUTO 2.86 K/mm3 (0.84-5.20); LYMPHOCYTES PERCENT AUTO 25 % (21-46); MONOCYTES ABSOLUTE AUTO 0.96 K/mm3 (0.16-1.47); MONOCYTES PERCENT AUTO 8 % (4-13); Mean Corpuscular HGB 26.9 pg (26.0-34.0); Mean Corpuscular HGB Conc 31.4 g/dL (31.5-36.5); Mean Corpuscular Volume 86 fL (80-100); Mean Platelet Volume 9.1 fL (9.1-12.4); NEUTROPHILS ABSOLUTE AUTO 7.21 K/mm3 (1.96-9.15); NEUTROPHILS PERCENT AUTO 62 % (41-73); Platelet Count 262 K/mm3 (150-400); RDW Coefficient Variation 15.4 % (11.7-14.2); RDW Standard Deviation 48.1 fL (35.1-46.3); Red Blood Cell Count 4.49 M/mm3 (4.30-5.90); White Blood Cell Count 11.58 K/mm3 (4.00-11.30)
[2024-08-21 11:30] LABS: Albumin/Globulin Ratio 0.7 (0.8-1.8); Bilirubin, Total 0.5 mg/dL (0.1-1.0); Bun/Creatinine Ratio 14.9 (12.0-20.0); Calcium, Blood 8.7 mg/dL (8.5-10.1); Creatinine, Blood 1.14 mg/dL (0.60-1.20); Globulin, Blood 4.2 g/dL (2.2-4.0); Total Protein, Blood 7.2 g/dL (6.4-8.2)
[2024-08-21] MEDS ORDERED: Albuterol 2.5 MG/3 ML VIAL INH SCH ×2 (13:20→15:35)
[2024-08-21] MEDS ORDERED: Doxycycline Hyclate 100 MG TAB PO ONE (13:20)
[2024-08-21] MEDS ORDERED: Ipratropium/Albuterol SulF 2.5-0.5MG/3 ML Amp INH ONE (13:20)
[2024-08-21] MEDS ORDERED: MethylPREDNISolone Sod Succ 125 MG Vial IV ONE (13:20)
[2024-08-21 14:10] LABS: Base Excess Venous 4.4 mmol/L; Bicarbonate Venous 27.8 mmol/L (24.0-30.0); PCO2 Venous 44.4 mmHg (38-42); pH Blood Venous 7.42 (7.34-7.37)
[2024-08-21 16:00] VITALS: BP 119/55
[2024-08-21] MEDS ORDERED: PRED20 PO (16:09)
[2024-08-21] MEDS ORDERED: DOXY100 PO (16:09)
[2024-08-21] MEDS ORDERED: IPRAT-ALBUT 0.5-3 ML INH (16:41)
== END 2024-08-21 18:46 | disposition home or self-care (01) ==
LOC: ER 09:44
PROVIDERS: Student in an Organized Health Care Education/Training Program
DX: J44.1 Chronic obstructive pulmonary disease with (acute) exacerbation (principal); R06.03 Acute respiratory distress; R40.4 Transient alteration of awareness; I11.0 Hypertensive heart disease with heart failure; I50.30 Unspecified diastolic (congestive) heart failure; E78.5 Hyperlipidemia, unspecified; K21.9 Gastro-esophageal reflux disease without esophagitis; G47.33 Obstructive sleep apnea (adult) (pediatric); Z88.0 Allergy status to penicillin; Z88.8 Allergy status to other drugs, medicaments and biological substances; Z79.899 Other long term (current) drug therapy; Z87.891 Personal history of nicotine dependence
CPT/HCPCS: 71045; 80053; 82803; 85025; 93005; 93010; 96374; 99285-25; A9270; J2919

== ENCOUNTER 2024-10-15 14:18 | Emergency (ER) | payer OTHER ==
[~2024-10-15] VITALS: Ht 188 cm; Wt 170.1 kg
[~2024-10-15 14:18] MED LIST changes: +DOXY100 PO; +IPRAT-ALBUT 0.5-3 ML INH; +PRED20 PO
[2024-10-15 15:15] LABS: BASOPHILS ABSOLUTE AUTO 0.07 K/mm3 (0.00-0.23); BASOPHILS PERCENT AUTO 1 % (0-2); EOSINOPHILS ABSOLUTE AUTO 0.99 K/mm3 (0.00-0.68); EOSINOPHILS PERCENT AUTO 8 % (0-6); Hematocrit 38.8 % (37.0-53.0); Hemoglobin 12.1 g/dL (13.5-17.5); IMMATURE GRAN ABSOLUTE AUTO 0.04 K/mm3 (0.00-0.10); IMMATURE GRAN PERCENT AUTO 0 % (0-1); LYMPHOCYTES ABSOLUTE AUTO 3.01 K/mm3 (0.84-5.20); LYMPHOCYTES PERCENT AUTO 26 % (21-46); MONOCYTES ABSOLUTE AUTO 0.93 K/mm3 (0.16-1.47); MONOCYTES PERCENT AUTO 8 % (4-13); Mean Corpuscular HGB Conc 31.2 g/dL (31.5-36.5); Mean Corpuscular Volume 86 fL (80-100); NEUTROPHILS ABSOLUTE AUTO 6.77 K/mm3 (1.96-9.15); NEUTROPHILS PERCENT AUTO 57 % (41-73); NRBC ABSOLUTE 0.00 K/mm3 (0.00-0.02); NRBC Auto 0.0 /100 WBC (0.0-0.2); Platelet Count 221 K/mm3 (150-400); RDW Coefficient Variation 16.7 % (11.7-14.2); RDW Standard Deviation 52.5 fL (35.1-46.3)
[2024-10-15 15:50] LABS: Alanine Aminotransfer (ALT/SGP 31.0 U/L (12-78); Albumin, Blood 3.0 g/dL (3.4-5.0); Albumin/Globulin Ratio 0.7 (0.8-1.8); Anion Gap 6.0 mmol/L (3-11); Aspartate Aminotrans (AST/SGOT 24.0 U/L (12-37); Bilirubin, Total 0.3 mg/dL (0.1-1.0); Blood Urea Nitrogen 24.0 mg/dL (8-24); CO2, Blood 30.0 mmol/L (21-32); Calcium, Blood 8.3 mg/dL (8.5-10.1); Chloride, Blood 106.0 mmol/L (98-108); Creatinine, Blood 1.18 mg/dL (0.60-1.20); Globulin, Blood 4.1 g/dL (2.2-4.0); Glucose, Blood 94.0 mg/dL (70-99); Potassium, Blood 4.4 mmol/L (3.5-5.5); Sodium, Blood 138.0 mmol/L (136-145); Total Protein, Blood 7.1 g/dL (6.4-8.2)
[2024-10-15 18:29] LABS: Influenza A, PCR NEGATIVE (NEGATIVE); Influenza B, PCR NEGATIVE (NEGATIVE); Resp Syncytial Virus, PCR NEGATIVE (NEGATIVE); SARS-Cov-2 (COVID-19) PCR, MMC NEGATIVE (NEGATIVE)
[2024-10-15 20:43] VITALS: BP 138/74
== END 2024-10-15 20:45 | disposition home or self-care (01) ==
LOC: ER 14:18
PROVIDERS: Emergency Medicine
DX: R06.02 Shortness of breath (principal); R60.0 Localized edema; Z99.81 Dependence on supplemental oxygen; Z79.82 Long term (current) use of aspirin; Z79.899 Other long term (current) drug therapy
CPT/HCPCS: 71046; 80053; 83880; 84484; 85025; 87637; 93005; 93010; 99285-25; A9270

== ENCOUNTER 2024-11-09 08:11 | Day surgery (SDC) | payer OTHER ==
[~2024-11-09] VITALS: Ht 188 cm; Wt 159.0 kg
[~2024-11-09 08:11] MED LIST changes: +ALBU2.5V5 INH; +ARTHRITIS PAIN150 GM TOP; +ASMANEX220 MC8 INH; +ERYT.5TO BOTHEYES; +STIOLTO RESPIMAT4 G1 INH; +[UNRECOGNIZED DRUG - OTHER] TOP
[2024-11-09 11:21] VITALS: BP 114/56
--- NOTE | 2024-11-09 11:32 | NUR ---
Pt to SDS via personal motorized WC. Pt unable to stand on scale for accurate height/weight, but can stand/pivot to transfer from chair to bed with 1 RN assist. History, Chart, Medications and Allergies reviewed before start of procedure. Patient confirms NPO status and agrees with scheduled surgery. Pre-Op teaching done. Pt verbalizes understanding. Patient States Post-Procedure ride home has been arranged.
[2024-11-09] MEDS ORDERED: Benzocaine Oral Spray 0.5ML UD ONE (12:21)
--- NOTE | 2024-11-09 12:35 | NUR ---
11/09/24 1235 Yfn Petit MONITOR INTACT WITH CONTINUOUS PULSE OXIMETRY, CONTINUOUS END TITAL CO2, 3-LEAD EKG AND INTERMITTENT BLOOD PRESSURE. Bite Block Placed O2 VIA POM INTACT THROUGHOUT SEDATION/PROCEDURE.
[2024-11-09 12:45] VITALS: BP 144/73
[2024-11-09 13:30] VITALS: BP 156/83
--- NOTE | 2024-11-09 14:30 | NUR ---
TO STEP POST PROCEDURE. HEBERT PO WELL. REPORTS 9/10 CHRONIC BACK PAIN, BASELINE FOR PT. REMAINS ON 3LO2 VIA NC. DENIES SOB/NAUSEA. VERBALIZED UNDERSTANDING OF DC INSTRUCTIONS. DC'D [facility].
== END 2024-11-09 23:00 | disposition home or self-care (01) ==
LOC: ORSCMMR 08:11 → ORD 09:30 → ORSCMMR 11:15
PROVIDERS: Internal Medicine Gastroenterology
PROC: 0D758ZZ Dilation of Esophagus, Via Natural or Artificial Opening Endoscopic (ICD-10-PCS; principal; 2024-11-09 11:15)
PROC: 0DB58ZX Excision of Esophagus, Via Natural or Artificial Opening Endoscopic, Diagnostic (ICD-10-PCS; principal; 2024-11-09 11:15)
PROC: 0DB78ZX Excision of Stomach, Pylorus, Via Natural or Artificial Opening Endoscopic, Diagnostic (ICD-10-PCS; principal; 2024-11-09 11:15)
DX: R13.10 Dysphagia, unspecified (principal); K21.9 Gastro-esophageal reflux disease without esophagitis; K29.70 Gastritis, unspecified, without bleeding; I10 Essential (primary) hypertension; E78.5 Hyperlipidemia, unspecified; G47.33 Obstructive sleep apnea (adult) (pediatric); J44.89 Other specified chronic obstructive pulmonary disease; E66.01 Morbid (severe) obesity due to excess calories; Z68.42 Body mass index [BMI] 45.0-49.9, adult; Z79.899 Other long term (current) drug therapy
CPT/HCPCS: 88305; 88342; A9270; J2704; J7120

== ENCOUNTER 2024-12-10 15:03 | Inpatient (IN) | payer OTHER ==
[~2024-12-10] VITALS: Ht 188 cm; Wt 176.9 kg
[~2024-12-10 15:03] MED LIST changes: -ALBU2.5V5 INH
[2024-12-10 15:49] LABS: BASOPHILS ABSOLUTE AUTO 0.05 K/mm3 (0.00-0.23); BASOPHILS PERCENT AUTO 1 % (0-2); EOSINOPHILS ABSOLUTE AUTO 0.68 K/mm3 (0.00-0.68); EOSINOPHILS PERCENT AUTO 7 % (0-6); Hematocrit 40.0 % (37.0-53.0); Hemoglobin 12.6 g/dL (13.5-17.5); IMMATURE GRAN ABSOLUTE AUTO 0.03 K/mm3 (0.00-0.10); IMMATURE GRAN PERCENT AUTO 0 % (0-1); LYMPHOCYTES ABSOLUTE AUTO 2.79 K/mm3 (0.84-5.20); LYMPHOCYTES PERCENT AUTO 27 % (21-46); MONOCYTES ABSOLUTE AUTO 0.91 K/mm3 (0.16-1.47); MONOCYTES PERCENT AUTO 9 % (4-13); Mean Corpuscular HGB Conc 31.5 g/dL (31.5-36.5); Mean Corpuscular Volume 86 fL (80-100); NEUTROPHILS ABSOLUTE AUTO 5.76 K/mm3 (1.96-9.15); NEUTROPHILS PERCENT AUTO 56 % (41-73); NRBC ABSOLUTE 0.00 K/mm3 (0.00-0.02); NRBC Auto 0.0 /100 WBC (0.0-0.2); Platelet Count 260 K/mm3 (150-400); RDW Coefficient Variation 15.8 % (11.7-14.2); RDW Standard Deviation 49.6 fL (35.1-46.3)
[2024-12-10 16:11] LABS: Alanine Aminotransfer (ALT/SGP 33.0 U/L (12-78); Albumin, Blood 3.2 g/dL (3.4-5.0); Albumin/Globulin Ratio 0.8 (0.8-1.8); Anion Gap 8.0 mmol/L (3-11); Aspartate Aminotrans (AST/SGOT 19.0 U/L (12-37); Bilirubin, Total 0.4 mg/dL (0.1-1.0); Blood Urea Nitrogen 30.0 mg/dL (8-24); CO2, Blood 28.0 mmol/L (21-32); Calcium, Blood 8.9 mg/dL (8.5-10.1); Chloride, Blood 107.0 mmol/L (98-108); Creatinine, Blood 1.36 mg/dL (0.60-1.20); Globulin, Blood 4.0 g/dL (2.2-4.0); Glucose, Blood 112.0 mg/dL (70-99); Magnesium, Blood 2.2 mg/dL (1.6-2.4); Potassium, Blood 4.0 mmol/L (3.5-5.5); Sodium, Blood 139.0 mmol/L (136-145); Total Protein, Blood 7.2 g/dL (6.4-8.2)
[2024-12-10] MEDS ORDERED: Vancomycin HCL 2,000 MG in NS 520 ML IV ONE (18:05)
[2024-12-10] MEDS ORDERED: FLU VACC TS2025(65UP)/MF59C/PF 45 MCG/0.5 ML SYRINGE IM SCH (19:15)
[2024-12-10] MEDS ORDERED: Magnesium Hydroxide Conc 10 ML UDC PO PRN (19:15)
[2024-12-10] MEDS ORDERED: Vancomycin (Pharmacy Consult) IV SCH (19:20)
[2024-12-10] MEDS ORDERED: NS 1,000 ML IV SCH (19:25)
[2024-12-10] MEDS ORDERED: ATOR40TA PO (20:22)
[2024-12-10] MEDS ORDERED: BUME2 PO (20:23)
[2024-12-10] MEDS ORDERED: THERA-D2000 UNIT PO (20:25)
[2024-12-10] MEDS ORDERED: VITAMIN B-122000 MC1 PO (20:26)
[2024-12-10] MEDS ORDERED: LOSA50 PO (20:30)
[2024-12-10] MEDS ORDERED: Lactobacil 2-S.Thermo-Bifido 1 1 Cap PO SCH (21:00)
[2024-12-10 23:13] VITALS: BP 158/64
[2024-12-11 03:41] VITALS: BP 118/44
--- NOTE | 2024-12-11 03:50 | NUR ---
Physician Communication Spoke with Dr. Salomon Mitchell in person to request resumption of home medication methocarbamol and to inform him of patient's wounds that were present on admission. Also received order to start basic wound care on Samir.
[2024-12-11] MEDS ORDERED: Robaxin750 MG PO (03:51)
[2024-12-11] MEDS ORDERED: LOSA50 PO (03:53)
[2024-12-11] MEDS ORDERED: POTCHL20ER PO (03:53)
[2024-12-11] MEDS ORDERED: EZET10 PO (03:54)
[2024-12-11] MEDS ORDERED: GUAI600T33 PO (03:55)
[2024-12-11] MEDS ORDERED: FOLI1 PO (03:55)
--- NOTE | 2024-12-11 05:43 | NUR ---
Shift Summary Received report from [facility] ED RN who was covering Primary nurse Daniel. It wasn't until roughly 2 hours later that patient arrived to the floor (approx 2245) via gurney. AOx4, hard of hearing. Patient transferred self via stand pivot to the bed. Redness, erythema, and swelling present in LLE, redness has been marked with a marker. Basic wound care completed and photos in chart. W/C at baseline. Patient can perform stand-pivot transfers but unable to walk. Endorsed pain to LLE after dressing changed. Leg elevated on a couple of pillows and obtained/gave mehocarbamol for pain with good effect. NS @ 100 x 1 bag, currently infusing. Had half sandwich upon arrival. Meds whole w/ water.
[2024-12-11] MEDS ORDERED: Mometasone Furoate Inhaler 220 mcg 14 ACT INH SCH (06:00)
[2024-12-11] MEDS ORDERED: Ipratropium/Albuterol SulF 2.5-0.5MG/3 ML Amp INH SCH (06:00)
[2024-12-11] MEDS ORDERED: Albuterol HFA200 ACT/6.7 GM INH INH PRN (06:00)
[2024-12-11 06:08] LABS: BASOPHILS ABSOLUTE AUTO 0.05 K/mm3 (0.00-0.23); BASOPHILS PERCENT AUTO 1 % (0-2); EOSINOPHILS ABSOLUTE AUTO 0.53 K/mm3 (0.00-0.68); EOSINOPHILS PERCENT AUTO 6 % (0-6); Hematocrit 37.8 % (37.0-53.0); Hemoglobin 11.7 g/dL (13.5-17.5); IMMATURE GRAN ABSOLUTE AUTO 0.05 K/mm3 (0.00-0.10); IMMATURE GRAN PERCENT AUTO 1 % (0-1); LYMPHOCYTES ABSOLUTE AUTO 2.73 K/mm3 (0.84-5.20); LYMPHOCYTES PERCENT AUTO 29 % (21-46); MONOCYTES ABSOLUTE AUTO 0.95 K/mm3 (0.16-1.47); MONOCYTES PERCENT AUTO 10 % (4-13); Mean Corpuscular HGB Conc 31.0 g/dL (31.5-36.5); Mean Corpuscular Volume 86 fL (80-100); NEUTROPHILS ABSOLUTE AUTO 5.26 K/mm3 (1.96-9.15); NEUTROPHILS PERCENT AUTO 55 % (41-73); NRBC ABSOLUTE 0.00 K/mm3 (0.00-0.02); NRBC Auto 0.0 /100 WBC (0.0-0.2); Platelet Count 227 K/mm3 (150-400); RDW Coefficient Variation 15.7 % (11.7-14.2); RDW Standard Deviation 49.6 fL (35.1-46.3)
[2024-12-11 06:31] LABS: Anion Gap 4.0 mmol/L (3-11); Blood Urea Nitrogen 33.0 mg/dL (8-24); CO2, Blood 29.0 mmol/L (21-32); Calcium, Blood 9.1 mg/dL (8.5-10.1); Chloride, Blood 109.0 mmol/L (98-108); Creatinine, Blood 1.28 mg/dL (0.60-1.20); Glucose, Blood 93.0 mg/dL (70-99); Potassium, Blood 4.2 mmol/L (3.5-5.5); Sodium, Blood 138.0 mmol/L (136-145)
[2024-12-11 07:34] VITALS: BP 145/70
[2024-12-11] MEDS ORDERED: Cholecalciferol 1000 Unit Tablet (=25MCG) PO SCH (09:00)
[2024-12-11] MEDS ORDERED: Enoxaparin 40 MG/0.4 ML SYR SC SCH (09:00)
[2024-12-11] MEDS ORDERED: Miconazole Nitrate 2% 85 GM PWD TOP SCH (09:15)
[2024-12-11 16:01] VITALS: BP 123/51
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
--- NOTE | 2024-12-11 17:23 | NUR ---
SHIFT SUMMARY PATIENT ALERT AND ORIENTED X4, MAKE NEEDS KNOWN. PATIENT MEDICATED PER EMAR. PATIENT PLEASANT AND RECEPTIVE DURING CARE. NO ACUTE CHANGE DURING THIS SHIFT. VITAL SIGNS STABLE. SELF REPOSITIONED THROUGHOUT SHIFT. BED LOCKED AND IN LOWEST POSITION. CALL LIGHT WITHIN REACH.
[2024-12-11 19:24] VITALS: BP 120/55
--- NOTE | 2024-12-12 02:33 | NUR ---
SHIFT SUMMARY PATIENT HAS BEEN PLEASANT AND ALERT DURING SHIFT. PATIENT HAS HAD RT TREATMENT AND HOME EQUIPMENT SETUP BY RT. HAS SLEPT SOLIDLY T/O THE SHIFT. FOR ONE PERIOD, PATIENT TOOK OFF MASK OF HOME EQUIPMENT AND DROPPED IN O2 TO 84%, PATIENT WAS AWAKEN AND O2 AT 4L NC WAS PUT ON. EDUCATED PATIENT ABOUT THE NEED AND PURPOSE OF HOME EQUIPMENT, BUT SAID HE ONLY WANTED THE 4L NC AT THIS POINT TO SLEEP. NO SIGNS OF DISTRESS, ABLE TO MAKE NEEDS KNOWN, CALL LIGHT WITHIN REACH. RAILS UP X2, BED IN LOW POSITION FOR SAFETY.
[2024-12-12 04:14] VITALS: BP 155/42
[2024-12-12 05:47] LABS: Anion Gap 6 mmol/L (3-11); Blood Urea Nitrogen 22 mg/dL (8-24); CO2, Blood 28 mmol/L (21-32); Calcium, Blood 8.6 mg/dL (8.5-10.1); Chloride, Blood 110 mmol/L (98-108); Creatinine, Blood 1.17 mg/dL (0.60-1.20); Glucose, Blood 100 mg/dL (70-99); Potassium, Blood 4.4 mmol/L (3.5-5.5); Sodium, Blood 140 mmol/L (136-145); Vancomycin, Trough 14.2 ug/mL (5.0-10.0)
[2024-12-12 07:18] VITALS: BP 134/63
[2024-12-12 15:22] VITALS: BP 122/55
--- NOTE | 2024-12-12 16:56 | NUR ---
SHIFT SUMMARY PATIENT ALERT AND ORIENTED X4, MAKE NEEDS KNOWN. PATIENT MEDICATED PER EMAR. PATIENT PLEASANT AND COOPERATIVE DURING CARE. NO ACUTE CHANGE DURING THIS SHIFT. VITAL SIGNS STABLE. SELF REPOSITIONED THROUGHOUT SHIFT. CALL LIGHT WITHIN REACH. BED LOCKED AND IN LOWEST POSITION.
[2024-12-12 19:22] VITALS: BP 116/54
[2024-12-12 21:43] VITALS: BP 131/60
[2024-12-13 03:20] VITALS: BP 137/76
[2024-12-13 05:57] LABS: Anion Gap 5.0 mmol/L (3-11); Blood Urea Nitrogen 20.0 mg/dL (8-24); CO2, Blood 29.0 mmol/L (21-32); Calcium, Blood 8.9 mg/dL (8.5-10.1); Chloride, Blood 106.0 mmol/L (98-108); Creatinine, Blood 1.19 mg/dL (0.60-1.20); Glucose, Blood 92.0 mg/dL (70-99); Potassium, Blood 4.0 mmol/L (3.5-5.5); Sodium, Blood 136.0 mmol/L (136-145)
--- NOTE | 2024-12-13 07:27 | NUR ---
SHIFT SUMMARY A/Ox4, VSS ON 3L. PT DENIES PAIN, SOB, NAUSEA. REFUSED CPAP OVERNIGHT. CONTINUOUS PULSE OX IN PLACE. PT STOOD AT BEDSIDE BRIEFLY, TOLERATED WELL. WOUND CARE AT GROIN COMPLETED; CLEANED, DRIED, MICONAZOLE APPLIED. LLE CLEANED WITH NORMAL SALINE, PATTED DRY, NONSTICK/ABD SECURED WITH KERLIX. NO ACUTE CHANGES OVERNIGHT.
[2024-12-13 07:36] VITALS: BP 139/67
--- NOTE | 2024-12-13 13:21 | NUR ---
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 We talk about the spiritual/emotional/mental toll that took on him and how his ravinder helped him through it. We talk about his many interesting caerrs and about his family and Rastafari connections. 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 I listening empathically and provided prayer. The patient responded well and showed signs of an elevated mood.
[2024-12-13 16:43] VITALS: BP 150/69
--- NOTE | 2024-12-13 17:32 | NUR ---
NO ACUTE CHANGES, PLEASANT TO CARE, ALERT AND ORIENTED X3, IV SITE RE DRESSED, REDDNESS FROM CELLULITIS IMRPOVED, HOME CPAP AT BEDSIDE, CALL LIGHT WITH IN REACH, WILL RELAY TO PM RN
[2024-12-13 19:20] VITALS: BP 120/61
[2024-12-13] MEDS ORDERED: Ipratropium/Albuterol SulF 2.5-0.5MG/3 ML Amp INH SCH (19:28)
[2024-12-14 05:05] VITALS: BP 139/57
[2024-12-14 06:13] LABS: Vancomycin, Trough 17.0 ug/mL (5.0-10.0)
--- NOTE | 2024-12-14 06:35 | NUR ---
SHIFT SUMMARY A/Ox4, VSS ON 2L, CPAP REFUSED OVERNIGHT. PT DENIES PAIN, NAUSEA, SOB. CARE MANAGEMENT ORDER PLACE PT HAS CONCERNS FOR TRANSPORTATION AT MD. STOOD AT BEDSIDE BRIEFLY, TOLERATED WELL. NO ACUTE CHANGES OVERNIGHT. CALL LIGHT IN REACH, NO FURTHER NEEDS AT THIS TIME.
[2024-12-14 07:56] VITALS: BP 151/57
[2024-12-14 10:58] LABS: Anion Gap 5.0 mmol/L (3-11); Blood Urea Nitrogen 20.0 mg/dL (8-24); CO2, Blood 32.0 mmol/L (21-32); Calcium, Blood 9.1 mg/dL (8.5-10.1); Chloride, Blood 105.0 mmol/L (98-108); Creatinine, Blood 1.13 mg/dL (0.60-1.20); Glucose, Blood 97.0 mg/dL (70-99); Potassium, Blood 4.2 mmol/L (3.5-5.5); Sodium, Blood 138.0 mmol/L (136-145)
[2024-12-14] MEDS ORDERED: VISBIOME 112.51 EACH PO (11:43)
[2024-12-14] MEDS ORDERED: SULTRIDS PO (11:44)
[2024-12-14] MEDS ORDERED: Vitamin D1000 UNI1 PO (11:44)
--- NOTE | 2024-12-14 16:07 | NUR ---
DISCHARGE PT DISCHARGED HOME VIA WHEEL CHAIR TRANSPORT. EDUCATION PROVIDED, ALL QUESTIONS ANSWERED, BELONGINGS WITH PT.
== END 2024-12-14 15:34 | disposition home or self-care (01) | DRG 872 ==
LOC: ER 15:03 → ERHOLD 19:13 → MEDS 19:13 → ENPENDDIS 12-14 11:46 → MEDS 12-14 15:34
PROVIDERS: Emergency Medicine; Internal Medicine; ADMIT Hospitalist
PROC: 3E03329 Introduction of Other Anti-infective into Peripheral Vein, Percutaneous Approach (ICD-10-PCS; principal; 2024-12-10)
PROC: 5A09357 Assistance with Respiratory Ventilation, Less than 24 Consecutive Hours, Continuous Positive Airway Pressure (ICD-10-PCS; 2024-12-13)
DX: A41.9 Sepsis, unspecified organism (principal); N17.9 Acute kidney failure, unspecified; L03.116 Cellulitis of left lower limb; I50.32 Chronic diastolic (congestive) heart failure; Z68.42 Body mass index [BMI] 45.0-49.9, adult; I87.8 Other specified disorders of veins; G47.33 Obstructive sleep apnea (adult) (pediatric); J44.9 Chronic obstructive pulmonary disease, unspecified; E78.5 Hyperlipidemia, unspecified; F41.9 Anxiety disorder, unspecified; K21.9 Gastro-esophageal reflux disease without esophagitis; G62.9 Polyneuropathy, unspecified; E66.01 Morbid (severe) obesity due to excess calories; I11.0 Hypertensive heart disease with heart failure; Z96.641 Presence of right artificial hip joint; Z88.0 Allergy status to penicillin; Z88.8 Allergy status to other drugs, medicaments and biological substances; Z79.899 Other long term (current) drug therapy; Z79.82 Long term (current) use of aspirin; Z95.828 Presence of other vascular implants and grafts; Z98.1 Arthrodesis status; Z87.891 Personal history of nicotine dependence; Z79.51 Long term (current) use of inhaled steroids; Z99.3 Dependence on wheelchair
CPT/HCPCS: 36415; 80048; 80053; 80202; 83605; 83735; 85025; 87040; 93971; 94640; 94664; 94760; 94762; 96365; 96366; 99285-25; A9270; G0378; J1650; J3373; J7030; J7040; J7050